=== PATIENT | male | born 2000 | race Caucasian/White ===

== ENCOUNTER 2022-04-13 10:14 | Emergency (ER) | payer BC, SELFPAY ==
--- NOTE | 2022-04-13 10:21 | ED.EXTPRO ---
HPI - Extremity Problem General Chief complaint: Animal Bite Stated complaint: Hand Pain to Both Hands Time Seen by Provider: 04/13/22 10:21 Source: patient Mode of arrival: ambulatory Limitations: no limitations History of Present Illness HPI Narrative: Mr. Cohn is a 21-year-old male patient presenting to the clinic today with complaints of bilateral hand pain after being bit by a dog today. He reports he was trying to break up a dog fight and got bit to bilateral hands. Has puncture wounds to second third fourth and fifth finger of the right hand and the thumb to the left hand-reports puncture wound is to the third finger on the right hand and is having some swelling proximal of the PIP joint. Tetanus status is [id number]-last was in 2017 Related Data Home Medications Medication Instructions Recorded Confirmed blood-glucose sensor (Dexcom G6 04/13/22 04/13/22 Sensor device) blood-glucose transmitter (Dexcom 04/13/22 04/13/22 G6 Transmitter device) insulin degludec 100 unit/mL (3 See Rx Instructions .Route .COMPLEX 04/13/22 04/13/22 mL) subcutaneous pen (Tresiba FlexTouch U-100 insulin) insulin lispro 100 unit/mL See Rx Instructions .Route .COMPLEX 04/13/22 04/13/22 subcutaneous pen (Humalog KwikPen (U-100) Insulin) pen needle, diabetic 32 gauge x 04/13/22 04/13/22 5/32 (BD Dayanara 2nd Gen Pen Needle) Allergies Allergy/AdvReac Type Severity Reaction Status Date / Time No Known Allergies Allergy Mild Verified 04/13/22 10:22 Review of Systems Review of Systems: Pertinent positives per HPI. Patient denies any fever, chills, rash, headache, visual changes, dizziness, cough, runny nose, sore throat, shortness of breath, chest pain, palpitations, nausea, vomiting, diarrhea, constipation, abdominal pain, or any urinary issues. PMFSH Comments At the time of my signature, I reviewed and agree with the nursing past medical, surgical, social, and family history. There is no relevant family history pertinent to the patient complaint. Exam Narrative: General: Well-developed, well nourished, in no apparent distress Head: Normocephalic, atraumatic. Cardio: Regular rate and rhythm, s1 and s2 normal, no murmur appreciated. Resp: Clear to auscultation bilaterally, no rhonchi, rales, wheezing or rubs. Musculoskeletal: No deformity, bleeding is controlled, tender to palpation over the puncture wounds to the second, third, fourth, and fifth finger to palpation with moderate swelling to the third finger, mild redness noted over the third finger proximal of the PIP with a 0.5 cm puncture wound, all other puncture wounds are fairly small, limited range of motion to the PIP joint of the third finger otherwise he has normal range of motion in all the other fingers, muscle strength strong and equal, peripheral pulse strong, no cyanosis, normal gait and station Course Course Emergency Course: Portions of this record may have been created with voice recognition software. Level of Care: Express Care Visit Vital Signs Vital signs: Vital Signs Temperature 36.9 C 04/13/22 10:36 Pulse Rate 103 H 04/13/22 10:36 Respiratory Rate 18 04/13/22 10:36 Blood Pressure 149/97 H 04/13/22 10:36 Pulse Oximetry 98 04/13/22 10:36 Oxygen Delivery Room Air 04/13/22 10:36 Temperature 36.9 C 04/13/22 10:36 Pulse Rate 103 H 04/13/22 10:36 Respiratory Rate 18 04/13/22 10:36 Blood Pressure 149/97 H 04/13/22 10:36 Pulse Oximetry 98 04/13/22 10:36 Oxygen Delivery Room Air 04/13/22 10:36 Vital signs reviewed MDM - Extremity (Nontraumatic) MDM Narrative Medical decision making narrative: At the time of visit patient is resting comfortably on the exam table. He has puncture wounds to the second third fourth and fifth finger of the right hand and to the thumb of the left hand. We will send in prescription for Augmentin. Offered x-ray of the third finger right hand and patient declined at this
[2022-04-13 10:36] VITALS: BP 149/97; PULSE 103; RESP 18; TEMP 36.9; O2SAT 98
== END 2022-04-13 10:47 | disposition home or self-care (01) ==
PROVIDERS: Emergency Provider Nurse Practitioner Family
DX: S61.230A Puncture wound without foreign body of right index finger without damage to nail, initial encounter (principal); S61.232A Puncture wound without foreign body of right middle finger without damage to nail, initial encounter; S61.234A Puncture wound without foreign body of right ring finger without damage to nail, initial encounter; S61.236A Puncture wound without foreign body of right little finger without damage to nail, initial encounter; S61.032A Puncture wound without foreign body of left thumb without damage to nail, initial encounter; W54.0XXA Bitten by dog, initial encounter; J45.909 Unspecified asthma, uncomplicated; E11.9 Type 2 diabetes mellitus without complications; Z79.84 Long term (current) use of oral hypoglycemic drugs
CPT/HCPCS: 99213; G0463

== ENCOUNTER 2022-04-14 11:52 | Emergency (ER) | payer BC, SELFPAY ==
--- NOTE | ~2022-04-14 | XR_ITS ---
EXAMINATION: XR hand RT min 3V DATE: 04/14/2022 12:25 INDICATION: Right hand dog bite and swelling. TECHNIQUE: 3 views of right hand were obtained. COMPARISON: Right hand radiographs 12/04/2010 FINDINGS: Bone alignment is normal. No fracture. Joint spaces are well maintained. IMPRESSION: 1. No fracture or radiopaque foreign body. Reviewed, dictated and finalized at location A.
[2022-04-14 12:12] VITALS: BP 141/87; PULSE 106; RESP 18; TEMP 36.3; O2SAT 98
--- NOTE | 2022-04-14 13:08 | ED.ANIMALBIT ---
HPI - Animal Bite General Chief Complaint: Animal Bite Stated Complaint: Pt States he wants an Xray on Hand Time Seen by Provider: 04/14/22 13:08 Source: patient, RN notes reviewed and old records reviewed Mode of arrival: ambulatory Limitations: no limitations History of Present Illness HPI narrative: 21-year-old male returns to the [facility] requesting an x-ray of his right hand. Patient was seen yesterday due to dog bites and was prescribed Augmentin. Patient just requesting x-ray, no new concerns. Related Data Patient tetanus UTD: Yes (2017 per patient) Home Medications Medication Instructions Recorded Confirmed blood-glucose sensor (Dexcom G6 04/13/22 04/13/22 Sensor device) blood-glucose transmitter (Dexcom 04/13/22 04/13/22 G6 Transmitter device) insulin degludec 100 unit/mL (3 See Rx Instructions .Route .COMPLEX 04/13/22 04/14/22 mL) subcutaneous pen (Tresiba FlexTouch U-100 insulin) insulin lispro 100 unit/mL See Rx Instructions .Route .COMPLEX 04/13/22 04/14/22 subcutaneous pen (Humalog KwikPen (U-100) Insulin) pen needle, diabetic 32 gauge x 04/13/22 04/13/22 5/32 (BD Dayanara 2nd Gen Pen Needle) Allergies Allergy/AdvReac Type Severity Reaction Status Date / Time No Known Allergies Allergy Mild Verified 04/14/22 12:51 Review of Systems Review of Systems: All systems reviewed & are unremarkable except as noted in HPI and below Constitutional: Constitutional: Reports no additional constitutional complaints, Denies chills and Denies fever(s) Eyes: Eyes: Reports no additional eye complaints ENT: Reports system reviewed and no additional complaints, except as documented Cardiovascular: Cardiovascular: Reports no additional cardiovascular complaints Respiratory: Respiratory: Reports no additional respiratory complaints Gastrointestinal: Gastrointestinal: Reports no additional gastrointestinal complaints Musculoskeletal: Musculoskeletal: Reports as per HPI Integumentary/Breasts: Skin/Breast: Reports system reviewed and no additional complaints, except as docu Neurologic: Reports system reviewed and no additional complaints, except as documented Psychiatric: Psychiatric: Reports no additional psychiatric complaints Allergic/Immunologic: Allergic/Immunologic: Reports no additional allergic/immunologic complaints PMFSH Past Medical History Medical History Diabetes Comments At the time of my signature, I reviewed and agree with the nursing past medical, surgical, social, and family history. There is no relevant family history pertinent to the patient complaint. Exam Const: General: healthy appearing, no acute distress and alert Nutritional Appearance: well nourished Orientation/consciousness: patient oriented x3 Limitations: no limitations HENMT: Head: normal to inspection Ears: external ears normal Eyes: General: appearance normal, both eyes and all related structures Pupils: Equal, round and reactive pupils present Neck: Neck: normal visual inspection, no lymphadenopathy and no meningeal signs Chest: Chest palpation & inspection: normal inspection of the chest Resp: Effort & Inspection: normal respiratory effort and no use of accessory muscles Auscultation: clear to auscultation bilaterally, no crackles, no rales, no rhonchi and no wheezes Cardio: Rate: regular rate Rhythm: regular rhythm GI: GI Palp: Yes Soft to palpation and No Tenderness to palpation present (GI) Back/Spine/Pelvis: Cervical Spine: normal cervical lordosis Thoracic/Lumbar Spine: thoracic and lumbar spine normal to inspection Skin: General skin exam: normal color Rashes: no rashes Wounds: no wounds Neuro: General: patient oriented x3, moves all extremities, no meningeal signs and no focal motor deficits Cranial nerves: Yes Equal, round and reactive pupils present Speech: normal speech Gait exam (Neuro): Normal gait present Extrem:
== END 2022-04-14 13:23 | disposition home or self-care (01) ==
PROVIDERS: Emergency Provider Nurse Practitioner
DX: S61.451A Open bite of right hand, initial encounter (principal); R22.31 Localized swelling, mass and lump, right upper limb; W54.0XXA Bitten by dog, initial encounter; E11.9 Type 2 diabetes mellitus without complications; Z79.4 Long term (current) use of insulin
CPT/HCPCS: 73130; 87070; 87205; 99213; G0463

== ENCOUNTER 2022-10-22 08:38 | Emergency (ER) | payer BC, SELFPAY ==
[2022-10-22 08:47] VITALS: BP 131/92; PULSE 85; RESP 18; TEMP 37.8; O2SAT 95
--- NOTE | 2022-10-22 09:06 | ED.URI ---
HPI - URI/Sore Throat General Chief Complaint: Upper Respiratory Infection Stated Complaint: SOB/Cough/UTI Time Seen by Provider: 10/22/22 09:06 Source: patient Mode of arrival: ambulatory Limitations: no limitations History of Present Illness HPI Narrative: 22-year-old male presents with complaint of sore throat, nasal congestion, headaches, body aches, chills, cough for the last 3 days. Denies nausea vomiting diarrhea. Has checked his temp and reports no fever. Taking DayQuil NyQuil Severe to treat his symptoms. History of asthma. States that his inhaler is . Denies shortness of breath, chest pain. Is not flu or COVID vaccinated. All systems reviewed and negative except as noted above. Related Data Home Medications Medication Instructions Recorded Confirmed blood-glucose sensor (Dexcom G6 04/13/22 10/22/22 Sensor device) blood-glucose transmitter (Dexcom 04/13/22 10/22/22 G6 Transmitter device) insulin degludec 100 unit/mL (3 See Rx Instructions .Route .COMPLEX 04/13/22 10/22/22 mL) subcutaneous pen (Tresiba FlexTouch U-100 insulin) insulin lispro 100 unit/mL See Rx Instructions .Route .COMPLEX 04/13/22 10/22/22 subcutaneous pen (Humalog KwikPen (U-100) Insulin) pen needle, diabetic 32 gauge x 04/13/22 10/22/22 5/32 (BD Dayanara 2nd Gen Pen Needle) Allergies Allergy/AdvReac Type Severity Reaction Status Date / Time insulin glargine AdvReac Mild Flushing Verified 10/22/22 09:28 [From Lantus U-100 Insulin] Review of Systems Review of Systems: CONSTITUTIONAL: Reports fever, chills, or sweats. EYES: Denies visual changes, redness, or discharge. ENT: Reports rhinorrhea, congestion, sore throat, or otalgia. CARDIOVASCULAR: Denies chest pain, palpitations, or edema. RESPIRATORY: Reports cough. Denies dyspnea. GASTROINTESTINAL: Denies abdominal pain, nausea, vomiting, or diarrhea. GENITOURINARY: Denies dysuria or hematuria. SKIN: Denies rash or itching. MUSCULOSKELETAL: Denies back pain, joint pain, or myalgia. NEUROLOGIC: Denies headache, numbness, or weakness. PSYCHIATRIC: Denies anxiety or depression. All other systems reviewed are negative, except as documented in HPI. FOR[facility]LY [facility] Past Medical History Medical History Diabetes Comments At time of signature, agree with nursing past medical, surgical, social and family history. There is no relevant family history pertinent to the presenting complaint. Exam Narrative: GENERAL: This is a well-nourished, well-developed patient . patient ill-appearing but no distress. HEAD: normocephalic, atraumatic. EYES: PERRL. Sclera clear/white. Vision is grossly intact. EARS: External ears normal, auditory canals clear and without drainage, TMs normal without perforation. Hearing grossly intact. NOSE: External nose normal with clear nasal drainage, erythema to both nares, mild congestion. THROAT: Mucous membranes moist, posterior pharynx clear. NECK: Neck supple, non-tender without lymphadenopathy, masses or thyromegaly. CARDIOVASCULAR: Regular rate and rhythm without murmurs, gallops, or rubs. RESPIRATORY: Clear to auscultation. Breath sounds equal bilaterally. No wheezes, rales, or rhonchi. SKIN: warm, Dry, intact with no suspicious lesions or rash, good texture and turgor. NEURO: awake, alert, and oriented to person, place and time. There were no obvious focal neurologic abnormalities. EXTREMITIES: No joint tenderness, effusion, or edema noted. Course Course Level of Care: Express Care Visit Vital Signs Vital signs: Vital Signs Temperature 37.8 C H 10/22/22 08:47 Pulse Rate 85 10/22/22 08:47 Respiratory Rate 18 10/22/22 08:47 Blood Pressure 131/92 H 10/22/22 08:47 Pulse Oximetry 95 10/22/22 08:47 Oxygen Delivery Room Air 10/22/22 08:47 Temperature 37.8 C H 10/22/22 08:47 Pulse Rate 85 10/22/22 08:47 Respiratory Rate 18 10/22/22 08:47 Bloo
== END 2022-10-22 09:38 | disposition home or self-care (01) ==
PROVIDERS: Emergency Provider Nurse Practitioner Family
DX: J10.1 Influenza due to other identified influenza virus with other respiratory manifestations (principal); Z20.822 Contact with and (suspected) exposure to COVID-19; E11.9 Type 2 diabetes mellitus without complications
CPT/HCPCS: 87426; 87804; 99213; C9803; G0463

== ENCOUNTER 2022-10-31 14:29 | Emergency (ER) | payer BC, SELFPAY ==
--- NOTE | ~2022-10-31 | XR_ITS ---
EXAMINATION: XR chest 2V DATE: 10/31/2022 14:56 INDICATION: Cough TECHNIQUE: PA and lateral views of the chest are obtained. COMPARISON: None available FINDINGS: There are minimal opacities of the lung bases. No pleural effusion or pneumothorax. The car diomediastinal silhouette is normal. The visualized bones and soft tissues are unremarkable. IMPRESSION: 1. Minimal airspace opacities of the lung bases, consistent with atelectasis versus pneumonia. Reviewed, dictated and finalized at location A. IMPRESSION: 1. Minimal airspace opacities of the lung bases, consistent with atelectasis ve rsus pneumonia.
[2022-10-31 14:37] VITALS: BP 145/77; PULSE 91; RESP 18; TEMP 36.6; O2SAT 98
--- NOTE | 2022-10-31 14:41 | ED.URI ---
HPI - URI/Sore Throat General Chief Complaint: Upper Respiratory Infection Stated Complaint: Cough Time Seen by Provider: 10/31/22 14:40 Source: patient Mode of arrival: ambulatory Limitations: no limitations History of Present Illness HPI Narrative: Sanya is a 22-year-old male patient presenting to the clinic today with complaints of a productive cough times 1.5 weeks. States he is bringing up some yellow phlegm. History of asthma. He is also type 1 diabetic. MD elicited complaint: cough, sore throat and nasal congestion Related Data Home Medications Medication Instructions Recorded Confirmed blood-glucose sensor (Dexcom G6 04/13/22 10/28/22 Sensor device) blood-glucose transmitter (Dexcom 04/13/22 10/28/22 G6 Transmitter device) insulin degludec 100 unit/mL (3 See Rx Instructions .Route .COMPLEX 04/13/22 10/28/22 mL) subcutaneous pen (Tresiba FlexTouch U-100 insulin) insulin lispro 100 unit/mL See Rx Instructions .Route .COMPLEX 04/13/22 10/28/22 subcutaneous pen (Humalog KwikPen (U-100) Insulin) pen needle, diabetic 32 gauge x 04/13/22 10/28/22 5/32 (BD Dayanara 2nd Gen Pen Needle) ofloxacin 0.3 % eye drops drp 10/31/22 Allergies Allergy/AdvReac Type Severity Reaction Status Date / Time insulin glargine AdvReac Mild Flushing Verified 10/28/22 15:01 [From Lantus U-100 Insulin] Review of Systems Review of Systems: Pertinent positives per HPI. Patient denies any fever, chills, rash, headache, visual changes, dizziness, chest pain, palpitations, nausea, vomiting, diarrhea, constipation, abdominal pain, or any urinary issues. FOR[facility]LY [facility] Past Medical History Medical History Diabetes Family History Family History Father Hypertension Mother Asthma Social History Social History Social History: smoked for 1 year from age [age] Smoking status: Former smoker Alcohol intake: current Drinks per week: 1 Alcohol use details: Beer Substance use: never Substance use type: does not use Lack of Transportation: No Lack of Food: Never True Current Housing: I Have Housing Concerned About Future Housing: No Difficulty Paying Gas/Electric Bills: No Difficulty Paying for Meds: No Currently Unemployed: No Education: High School Diploma/GED Difficulty w/ Childcare or Family Care: No Comments At the time of my signature, I reviewed and agree with the nursing past medical, surgical, social, and family history. There is no relevant family history pertinent to the patient complaint. Exam Narrative: General: Well-developed, well nourished, in no apparent distress Head: Normocephalic, atraumatic Eyes: Pupils equally round and reactive to light bilaterally, EOM intact, sclera and conjunctive clear, no discharge, lids normal Ears: TMs intact and clear, ear canals clear, no drainage, grossly hearing normal. Nose: Nares patent, clear discharge, no inflammation, no sinus tenderness. Mouth: Oral pharynx without lesions or masses, good dentition, MMM. Neck: Supple, trachea midline, no enlargement of anterior or posterior cervical nodes, no thyroid masses or goiter palpable. Cardio: Regular rate and rhythm, s1 and s2 normal, no murmur appreciated. Resp: Diminished lung sounds in the bases otherwise clear, no rhonchi, rales, wheezing or rubs Course Course Emergency Course: Portions of this record may have been created with voice recognition software. Level of Care: Express Care Visit Vital Signs Vital signs: Vital Signs Temperature 36.6 C 10/31/22 14:37 Pulse Rate 91 10/31/22 14:37 Respiratory Rate 18 10/31/22 14:37 Blood Pressure 145/77 H 10/31/22 14:37 Pulse Oximetry 98 10/31/22 14:37 Oxygen Delivery Room Air 10/31/22 14:37 Temperature 36.6 C 10/31/22 1
== END 2022-10-31 15:25 | disposition home or self-care (01) ==
PROVIDERS: Emergency Provider Nurse Practitioner Family; PCP Family Medicine
DX: J18.9 Pneumonia, unspecified organism (principal); Z87.891 Personal history of nicotine dependence; E10.9 Type 1 diabetes mellitus without complications
CPT/HCPCS: 71046; 99213; G0463